=== PATIENT | male | born 1995 ===

== ENCOUNTER 2024-07-11 22:33 | Emergency (ER) | payer OTHER ==
[~2024-07-11] VITALS: Ht 172.7 cm; Wt 81.8 kg
[2024-07-11 22:41] VITALS: TEMP 99.2
[2024-07-11] MEDS ORDERED: HYDR-4072 PO (23:25)
[2024-07-11] MEDS: IBUPROFEN 600 MG TABLET PO ONE (23:38)
[2024-07-11] MEDS: ACETAMINOPHEN 500 MG TABLET PO ONE (23:38)
[2024-07-11 23:47] VITALS: BP 113/77; PULSE 69; RESP 18; O2SAT 99
== END 2024-07-11 23:50 | disposition home or self-care (01) ==
LOC: EMS 22:33
DX: K02.9 Dental caries, unspecified (principal); J45.909 Unspecified asthma, uncomplicated
CPT/HCPCS: 99283